=== PATIENT | male | born 1980 | race Caucasian/White ===

== ENCOUNTER 2020-05-14 21:09 | Emergency (ER) | payer OTHER ==
[~2020-05-14] VITALS: Ht 172.7 cm; Wt 77.1 kg
[2020-05-14] MEDS ORDERED: KEFLEX500 M1 PO (23:09)
== END 2020-05-14 23:30 | disposition home or self-care (01) ==
LOC: ED 21:09
DX: S81.811A Laceration without foreign body, right lower leg, initial encounter (principal); W45.8XXA Other foreign body or object entering through skin, initial encounter; Y93.89 Activity, other specified; Y92.89 Other specified places as the place of occurrence of the external cause; Y99.8 Other external cause status